=== PATIENT | male | born 1990 | race Caucasian/White ===

== ENCOUNTER 2016-05-10 23:08 | Emergency (ER) | payer BC ==
[2016-05-11 01:38] VITALS: BP 126/78
== END 2016-05-11 01:38 | disposition home or self-care (01) ==
LOC: ED 23:08
DX: S01.312A Laceration without foreign body of left ear, initial encounter (principal); S60.512A Abrasion of left hand, initial encounter; V49.9XXA Car occupant (driver) (passenger) injured in unspecified traffic accident, initial encounter; Y93.89 Activity, other specified; Y92.89 Other specified places as the place of occurrence of the external cause; Y99.8 Other external cause status